=== PATIENT | male | born 1960 | race Hispanic/Latino ===

== ENCOUNTER 2024-04-13 07:16 | Day surgery (SDC) | payer OTHER ==
[2024-04-09 10:43] VITALS: BP 129/69; PULSE 68; RESP 18
[2024-04-09 10:53] LABS: BASOPHILS # (AUTO) 0.03 K/uL (0.00-0.20); BASOPHILS % (AUTO) 0.4 % (0.0-5.0); EOSINOPHILS # (AUTO) 0.15 K/uL (0.00-0.70); EOSINOPHILS % (AUTO) 1.9 % (0.0-8.0); HEMATOCRIT 34.5 % (42-54); IMMATURE GRANULOCYTE ABSOLUTE 0.03 K/uL (0-1); LYMPHOCYTES # (AUTO) 1.4 K/uL (1.0-4.8); LYMPHOCYTES % (AUTO) 18.4 % (21.0-51.0); MEAN CORPUSCULAR HEMOGLOBIN 34.7 pg (27.0-33.0); MEAN CORPUSCULAR HGB CONC 32.2 g/dL (32.0-36.0); MEAN CORPUSCULAR VOLUME 107.8 fL (79-99); MONOCYTES # (AUTO) 0.7 K/uL (0.1-1.0); MONOCYTES % (AUTO) 8.4 % (3.0-13.0); NEUTROPHILS # (AUTO) 5.5 K/uL (1.8-7.7); NEUTROPHILS % (AUTO) 70.5 % (40.0-77.0); PLATELET COUNT (AUTO) 128 K/uL (130-400); RED CELL DISTRIBUTION WIDTH 13.5 % (11.0-15.5); WHITE BLOOD COUNT (AUTO) 7.8 K/uL (4.8-10.8)
[2024-04-09 11:03] LABS: INR 1.03 (0.85-1.15); PROTHROMBIN TIME 11.1 SEC (9.6-11.6)
[2024-04-09 11:04] LABS: PARTIAL THROMBOPLASTIN TIME 30.1 SEC (26.3-35.5)
[2024-04-09 11:36] LABS: ALBUMIN 3.3 g/dL (3.5-5.0); BILIRUBIN,TOTAL 0.5 mg/dL (0.2-1.0); TOTAL PROTEIN, SERUM 8.1 g/dL (6.0-8.3)
[2024-04-09 11:40] LABS: CREATININE 8.3 mg/dL (0.5-1.3)
[2024-04-13] VITALS (17 sets, daily range): BP systolic 134–178; BP diastolic 72–88; PULSE 62–68; RESP 10–19
[~2024-04-13] VITALS: Ht 170.2 cm; Wt 79.4 kg
[~2024-04-13 07:16] MED LIST: AEC81 PO; ATOR40TA69 PO; CARV25TA PO; CHOL2000 PO; CLOP75TA32 PO; FOLI1TAB85 PO; INSLAN SQ; PANT40TA54 PO; SACU1TAB4 PO; SUCR500T PO
[2024-04-13] MEDS ORDERED: HEParin-NS 1,000 UNIT/500 ML 500 ML IV ONE (08:47)
[2024-04-13] MEDS ORDERED: MIDAZOLAM HCL 1 MG/ML 2ML VIAL ONE (08:57)
[2024-04-13] MEDS ORDERED: proPOFol 10 MG/ML 20ML VIAL IV ONE (08:57)
[2024-04-13] MEDS ORDERED: FENTanyl CITRate PF 50 MCG/1 ML 2ML VIAL ONE (08:58)
[2024-04-13 09:11] LABS: CREATININE 5.5 mg/dL (0.5-1.3); POTASSIUM 3.8 mmol/L (3.5-5.1)
[2024-04-13] MEDS ORDERED: KETAMINE 50MG/ML SYRINGE 50 MG/ML DISP.SYRIN ONE (09:12)
[2024-04-13] MEDS ORDERED: GLYCOPYRROLATE 0.2 MG/ML 5 ML VIAL ONE (09:18)
[2024-04-13] MEDS ORDERED: ePHEDrine SULFate 50 MG/ML AMPULE ONE (09:19)
[2024-04-13] MEDS: ceFAZolin SODIUM 2 GM VIAL ONE (09:44)
[2024-04-13] MEDS: BUPIvacaine/PF 0.25% 30ML VIAL IJ ONE (09:45)
[2024-04-13] MEDS: LIDOCAINE HCL 1% 20 ML VIAL ONE (09:46)
[2024-04-13] MEDS: 0.9%NACL 1000ML 1,000 ML IV ONE (09:50)
[2024-04-13] MEDS: ONDANSETRON 4MG INJ ONE (10:57)
[2024-04-13] MEDS: MEPERIDINE-PF 25 MG/ML SYG ONE (10:57)
[2024-04-13] MEDS: acetaMINOPHEN 1,000 MG/100 ML VIAL IV ONE (10:58)
== END 2024-04-13 12:29 | disposition home or self-care (01) ==
LOC: DAH 07:16
PROVIDERS: ATTEND Student in an Organized Health Care Education/Training Program
DX: I12.0 Hypertensive chronic kidney disease with stage 5 chronic kidney disease or end stage renal disease (principal); E11.22 Type 2 diabetes mellitus with diabetic chronic kidney disease; N18.6 End stage renal disease; K21.9 Gastro-esophageal reflux disease without esophagitis; E78.5 Hyperlipidemia, unspecified; E66.9 Obesity, unspecified; Z79.01 Long term (current) use of anticoagulants; Z99.2 Dependence on renal dialysis; Z79.899 Other long term (current) drug therapy
CPT/HCPCS: 80053; 85025; 85610; 85730; 36415 ×2; 93005; 36821; 80048; 82948 ×2; A6260; A4223 ×2; A4600; A4663; J3010; J7030; J0665; J3490 ×3; J2250; J2704; J2405; J2175; J1644; J0690; G0168; A4649 ×3; C1713 ×2; A4215; A4213; A4222; A4221; A4216